=== PATIENT | female | born 1950 | race American Indian/Alaskan Native ===

== ENCOUNTER 2021-09-05 18:38 | Emergency (ER) | payer SELFPAY ==
[2021-09-05] MEDS ORDERED: QUEtiapine 25 MG TAB PO ONE (21:23)
--- NOTE | 2021-09-05 21:23 | Emergency Department Report ---
ED Psych HPI - General Stated Complaint: SI Time Seen by Provider: 09/05/21 21:15 Source: patient Mode of arrival: Ambulatory Limitations: No Limitations - History of Present Illness Initial Comments: Chief complaint: "If I tell you what I have, you will keep me in this hospital forever." HPI: This is a 71-year-old female with history of hypertension, prediabetes, schizophrenia and bipolar disorder who presents with paranoia and delusional behavior. She informed me that the later at the assisted she informing that she had an unpleasant interaction with a female at her assisted. She denies suicidal homicidal ideation. She has been compliant with her psychiatric med ication. She arrived via EMS. Complaint: other (Paranoia delusional thought pattern) -: unknown Associated Psychiatric Symptoms: racing thoughts, delusions Quality: constant Improves With: none Worsens With: none Context: not taking psychiatric Associated Symptoms: denies other symptoms Treatments Prior to Arrival: other (EMS transportation) - Related Data Previous Rx's Medication Instructions Recorded Last Taken Type QUEtiapine [SEROquel] 25 mg PO BID 30 Days #60 09/06/21 Unknown Rx Quetiapine Fumarate [SEROquel] 50 mg PO QHS 30 Days #30 tab 09/06/21 Unknown Rx Allergies Allergy/AdvReac Type Severity Reaction Status Date / Time No Known Allergies Allergy Unverified 05/23/21 11:31 ED Review of Systems ROS: Stated complaint: SI Other details as noted in HPI Comment: All other systems reviewed and negative Constitutional: denies: fever, malaise Respiratory: denies: cough, shortness of breath Cardiovascular: chest pain Psychiatric: denies: anxiety, depression, auditory hallucinations, visual hallucinations ED Past Medical Hx - Past Medical History Previous Medical History?: Yes Hx Hypertension: Yes Hx Diabetes: Yes (Prediabetes) Hx Psychiatric Treatment: Yes (Bipolar, schizophrenia) - Social History Smoking Status: Current Every Day Smoker Substance Use Type: None - Medications Home Medications: Home Medications Medication Instructions Recorded Confirmed Last Taken Type QUEtiapine [SEROquel] 25 mg PO BID 30 Days #60 09/06/21 Unknown Rx Quetiapine Fumarate [SEROquel] 50 mg PO QHS 30 Days #30 tab 09/06/21 Unknown Rx ED Physical Exam - General Limitations: No Limitations General appearance: alert, in no apparent distress - Head Head exam: Present: atraumatic, normocephalic - Eye Eye exam: Present: normal appearance - ENT ENT exam: Present: mucous membranes moist - Neck Neck exam: Present: normal inspection, full ROM - Respiratory Respiratory exam: Present: normal lung sounds bilaterally. Absent: respiratory distress, wheezes, rales, rhonchi - Cardiovascular Cardiovascular Exam: Present: regular rate, normal rhythm, normal heart sounds. Absent: systolic murmur, diastolic murmur, rubs, gallop - GI/Abdominal GI/Abdominal exam: Present: soft, normal bowel sounds. Absent: distended, tenderness, guarding, rebound, rigid - Extremities Exam Extremities exam: Present: normal inspection - Back Exam Back exam: Present: normal inspection - Neurological Exam Neurological exam: Present: alert, oriented X3 - Psychiatric Psychiatric exam: Present: agitated (Slightly agitated), flat affect, other (Disorganized thought pattern circular speech flight of ideas) - Skin Skin exam: Present: warm, dry, intact, normal color. Absent: rash ED Course Vital Signs 09/06/21 09/06/21 09/07/21 11:20 20:37 10:25 Temperature 98.5 F 97.7 F 98.2 F Pulse Rate 67 77 74 Respiratory 18 18 Rate Blood Pressure 133/81 143/84 122/76 [Right] O2 Sat by Pulse 96 96 Oximetry ED Medical Decision Making - Lab Data Result diagrams: 09/05/21 21:22 09/05/21 21:22 Laboratory Results - last 24 hr 09/05/21 09/05/21 09/05/21 21:22 21:22 21:22 WBC 10.8 RBC 5.57 H Hgb 15.1 H Hct 46.1 H MCV 83 MCH 27 L MCHC 33 RDW 15.3 H Plt Count 319 Lymph % (Auto) 27.5 [place] % (Auto) 9.5 H Eos % (Auto) 1.3 Baso % (Auto) 0.8 Lymph # (Auto) 3.0 [place] # (Auto) 1.0 H Eos # (Auto) 0.1 Baso # (Auto) 0.1 Seg Neutrophils % 60.9 Seg Neutrophils # 6.6 Sodium 140 Potassium 4.2 Chloride 104.4 Carbon Dioxide 21 L Anion Gap 19 BUN 17 Creatinine 0.8 Estimated GFR > 60 BUN/Creatinine Ratio 21 Glucose 115 H Calcium 10.1 Urine Color Urine Turbidity Urine pH Ur Specific [place] Urine Protein Urine Glucose (UA) Urine Ketones Urine Blood Urine Nitrite Urine Bilirubin Urine Urobilinogen Ur Leukocyte Esterase Urine WBC (Auto) Urine RBC (Auto) U Epithel Cells (Auto) Urine Bacteria (Auto) Urine WBC Clumps Hyaline Casts Urine Mucus Urine Yeast (Budding) Salicylates < 0.3 L Urine Opiates Screen Urine Methadone Screen Acetaminophen Ur Barbiturates Screen Ur Phencyclidine Scrn Ur Amphetamines Screen U Benzodiazepines Scrn Urine Cocaine Screen U Marijuana (THC) Screen Drugs of Abuse Note Plasma/Serum Alcohol 09/05/21 09/05/21 09/05/21 21:22 21:22 Unknown WBC RBC Hgb Hct MCV MCH MCHC RDW Plt Count Lymph % (Auto) [place] % (Auto) Eos % (Auto) Baso % (Auto) Lymph # (Auto) [place] # (Auto) Eos # (Auto) Baso # (Auto) Seg Neutrophils % Seg Neutrophils # Sodium Potassium Chloride Carbon Dioxide Anion Gap BUN Creatinine Estimated GFR BUN/Creatinine Ratio Glucose Calcium Urine Color Yellow Urine Turbidity Cloudy Urine pH 5.0 Ur Specific [place] 1.019 Urine Protein 100 mg/dl Urine Glucose (UA) Neg Urine Ketones Neg Urine Blood Neg Urine Nitrite Neg Urine Bilirubin Neg Urine Urobilinogen < 2.0 Ur Leukocyte Esterase Mod Urine WBC (Auto) 55.0 H Urine RBC (Auto) 17.0 U Epithel Cells (Auto) 47.0 H Urine Bacteria (Auto) 2+ Urine WBC Clumps 2+ Hyaline Casts 2 Urine Mucus Few Urine Yeast (Budding) 1+ Salicylates Urine Opiates Screen Urine Methadone Screen Acetaminophen 5.0 L Ur Barbiturates Screen Ur Phencyclidine Scrn Ur Amphetamines Screen U Benzodiazepines Scrn Urine Cocaine Screen U Marijuana (THC) Screen Drugs of Abuse Note Plasma/Serum Alcohol < 0.01 09/05/21 Unknown WBC RBC Hgb Hct MCV MCH MCHC RDW Plt Count Lymph % (Auto) [place] % (Auto) Eos % (Auto) Baso % (Auto) Lymph # (Auto) [place] # (Auto) Eos # (Auto) Baso # (Auto) Seg Neutrophils % Seg Neutrophils # Sodium Potassium Chloride Carbon Dioxide Anion Gap BUN Creatinine Estimated GFR BUN/Creatinine Ratio Glucose Calcium Urine Color Urine Turbidity Urine pH Ur Specific [place] Urine Protein Urine Glucose (UA) Urine Ketones Urine Blood Urine Nitrite Urine Bilirubin Urine Urobilinogen Ur Leukocyte Esterase Urine WBC (Auto) Urine RBC (Auto) U Epithel Cells (Auto) Urine Bacteria (Auto) Urine WBC Clumps Hyaline Casts Urine Mucus Urine Yeast (Budding) Salicylates Urine Opiates Screen Presumptive negative Urine Methadone Screen Presumptive negative Acetaminophen Ur Barbiturates Screen Presumptive negative Ur Phencyclidine Scrn Presumptive negative Ur Amphetamines Screen Presumptive negative U Benzodiazepines Scrn Presumptive negative Urine Cocaine Screen Presumptive negative U Marijuana (THC) Screen Presumptive negative Drugs of Abuse Note Disclamer Plasma/Serum Alcohol - Medical Decision Making 1. This is a 71-year-old female with history of schizophrenia and bipolar disorder who presents with paranoia and delusional thought pattern. Slightly agitated upon arrival. She is medically clear for psychiatric care. Awaiting treatment recommendations by psychiatry team. CBC chemistry within normal limits. Salicylates acetaminophen alcohol undetected on serum studies. Patient is medically clear for psychiatric care. Awaiting treatment recommendations by mental health team. 2. Suspect candidal vaginitis causing contaminated abnormal urinalysis with contamination, will cover for both candidal vaginitis with fluconazole and Keflex for UTI. Critical care attestation.: If time is entered above; I have spent that time in minutes in the direct care of this critically ill patient, excluding procedure time. ED Disposition Clinical Impression: Schizophrenia, Candidal vaginitis, UTI (urinary tract infection) Disposition: 01 HOME / SELF CARE / HOMELESS Is pt being admited?: No Does the pt Need Aspirin: No Condition: Stable Additional Instructions: Professional and Agency Contacts To help [facility](18/03) [place] Crisis Line: Suicide Prevention Line: Crisis Text Line: Text START to [phone] Emergency: 911 Outpatient COMMUNITY Behavioral Health Resources: [place]: [facility] [address] [place], [place] [address] [place]: [facility] - [address] [address] [place]: [facility] - [address] [place] [address] Saturday thru Saturday - 8am - 5pm [place]: [facility] Address: [address], [place] [address] [place]: [facility] Address: [address], [place] [address] Saturday thru Saturday- 7am-2pm [facility] Address: [address], [place] [address] Saturday thru Saturday: 8:30AM-5PM OUTPATIENT MENTAL HEALTH RESOURCES [facility], [address] [place] [address] [facility] Anabella Baird MD: [address] [facility] [address] [place], [place] [id number] [facility]: [address] [place] [address] [facility] [address] [phone] [facility]: [address] [facility] [address] [place] [address] [phone] [facility]: [address] [facility] [address] [facility] [address] [facility]: [address] [place] [address] Forrest Johnson MD: [address] [facility] [id number] [facility]: [address] [place], [place] [id number] [phone] [place] CRISIS AND ACCESS LINE: * Prescriptions: Quetiapine Fumarate [SEROquel] 50 mg PO QHS 30 Days #30 tab QUEtiapine [SEROquel] 25 mg PO BID 30 Days #60 Referrals: PRIMARY CARE, [Primary Care Provider] - 3-5 Days
[2021-09-05 21:45] LABS: Basophils # (Auto) 0.1 K/mm3 (0.0-0.1); Basophils % (Auto) 0.8 % (0.0-1.8); Eosinophils # (Auto) 0.1 K/mm3 (0.0-0.4); Eosinophils % (Auto) 1.3 % (0.0-4.3); Hematocrit 46.1 % (30.3-42.9); Hemoglobin 15.1 gm/dl (10.1-14.3); Lymphocytes % (Auto) 27.5 % (13.4-35.0); Mean Corpuscular HGB Conc 33 % (30-34); Mean Corpuscular Volume 83 fl (79-97); Monocytes % (Auto) 9.5 % (0.0-7.3); Platelet Count 319 K/mm3 (140-440); Red Blood Count 5.57 M/mm3 (3.65-5.03); Red Cell Distribution Width 15.3 % (13.2-15.2)
[2021-09-05 21:49] LABS: BUN/Creatinine Ratio 21; Blood Urea Nitrogen 17 mg/dL (7-17); Calcium 10.1 mg/dL (8.4-10.2); Hemolysis Index 11
[2021-09-06 00:25] LABS: Bacteria,Urine 2+ /HPF (Negative); Bilirubin,Urine NEG (Negative); Blood,Urine NEG (Negative); Color,Urine Yellow (Yellow); Hyaline Casts,Urine 2 /LPF; Mucus,Urine FEW /HPF; Urobilinogen,Urine < 2.0 mg/dL (<2.0)
[2021-09-06 00:32] LABS: Amphetamine Screen,Urine PRESUMPTIVE NEGATIVE; Benzodiazepines Screen,Urine PRESUMPTIVE NEGATIVE; Cannabinoid Screen,Urine PRESUMPTIVE NEGATIVE; Cocaine Screen,Urine PRESUMPTIVE NEGATIVE; Methadone Screen,Urine PRESUMPTIVE NEGATIVE; Opiate Screen,Urine PRESUMPTIVE NEGATIVE
[2021-09-06] MEDS ORDERED: FLUCONAZOLE 200 MG TAB PO ONE (10:00)
--- NOTE | 2021-09-06 11:31 | Event Note ---
Date: 09/06/21 S: No events reported overnight O: Vital Signs - 8 hr 09/06/21 11:20 Temperature 98.5 F Pulse Rate 67 Respiratory 18 Rate Blood Pressure 133/81 [Right] O2 Sat by Pulse 96 Oximetry A: Schizophrenia P: 213/awaiting inpatient psych.
--- NOTE | 2021-09-06 11:34 | Consultation ---
History of Present Illness - Reason for Consult Consult date: 09/06/21 Reason for consult: mental health evaluation - History of Present Psychiatric Illness ED Note: This is a 71-year-old female with history of hypertension, prediabetes, schizophrenia and bipolar disorder who presents with paranoia and delusional behavior. She informed me that the later at the [facility] she informing that she had an unpleasant interaction with a female at her [facility]. She denies suicidal homicidal ideation. She has been compliant with her psychiatric medication. She arrived via EMS. Tosin Soler is a 71 year old female with history of Bipolar, Schizophrenia, and Anxiety disorder. In my interview with the the patient, she is restless and nervous. she states " they brought me here because they think I'm messed up in the head, No body will give me my medicine." The patient reports difficulty with sleep. She denies any current suicidal/homicidal ideation and denies hallucinations. PAST PSYCHIATRIC HISTORY: Diagnoses: Bipolar, Schizophrenia, and Anxiety Suicide attempts or Self-harm behavior: Yes Prior psychiatric hospitalizations: Yes Substance Abuse history: denies Previous psychiatric medications tried:unable to recall Outpatient treatment:unknown PAST MEDICAL HISTORY: Family Psychiatric History: None reported or documented SOCIAL HISTORY Marital Status: Living Arrangements: Lives in a fpc Employment Status:[employer] Access to guns/weapons: Denies Education:9th grade History of Abuse:Denies Legal History:Unknown REVIEW OF SYSTEMS Constitutional: Negative for weight loss ENT: Negative for stridor Respiratory: Negative for cough or hemoptysis All other systems reviewed and are negative MENTAL STATUS EXAMINATION General Appearance and Behavior: Age appropriate, good hygiene, wearing appropriate clothes, uncooperative polite with questioning. Cooperation: cooperative Psychomotor Behavior: Psychomotor agitation Mood:"anxious" Affect and affective range:congruent Thought Process:Goal directed Thought Content:reality oriented Speech:Normal Intellectual Functioning: Average Suicidal Ideation:Denies Homicidal Ideation: Denies Hallucination: Denies Impulse Control:Questionable Insight and Judgment:limited insight and good judgment Memory: Intact Attention:Distractible Orientation: Alert and oriented Diagnoses: Hx of Bipolar disorder (1) DC 1013 Treatment Plan: Continue home meds. Start Seroquel 50mg po QHS Start Seroquel 25mg po BID Patient should be compliant with medications and not to use drugs and not to drink alcohol. PSYCHOTHERAPY: Supportive psychotherapy provided MEDICAL: Per primary team DELIRIUM PRECAUTIONS: Please re-orient patient frequently, keep lights on during the day, and minimize benzodiazepines and opiates as these medications could worsen patient's confusion. DEATH CLAIM CLERK: Per medical team DISPOSITION: Do not recommend acute inpatient psychiatric hospitalization at this time. Automated Access Systems Technician will provide patient with psychiatric out-patient resources and patient to follow up with her PCP. FOLLOW-UP: Will sign off. Thank you for the consult. Please contact with any questions and/or concerns. Medications and Allergies Allergies Allergy/AdvReac Type Severity Reaction Status Date / Time No Known Allergies Allergy Unverified 05/23/21 11:31 Home Medications Medication Instructions Recorded Confirmed Last Taken Type QUEtiapine [SEROquel] 25 mg PO BID 30 Days #60 09/06/21 Unknown Rx Quetiapine Fumarate [SEROquel] 50 mg PO QHS 30 Days #30 tab 09/06/21 Unknown Rx Active Meds: Active Medications Cephalexin (Cephalexin 500 Mg Cap) 500 mg PO TID [facility]; Protocol Stop: 09/10/21 14:01 Mental Status Exam - Vital signs Last Vital Signs Temp 98.5 F 09/06/21 11:20 Pulse 67 09/06/21 11:20 Resp 18 09/06/21 11:20 BP 133/81 09/06/21 11:20 Pulse Ox 96 09/06/21 11:20 Results Result Diagrams: 09/05/21 21:22 09/05/21 21:22 Abnormal lab results 09/05/21 09/05/21 09/05/21 Range/Units 21:22 21:22 21:22 RBC 5.57 H (3.65-5.03) M/mm3 Hgb 15.1 H (10.1-14.3) gm/dl Hct 46.1 H (30.3-42.9) % MCH 27 L (28-32) pg RDW 15.3 H (13.2-15.2) % [place] % (Auto) 9.5 H (0.0-7.3) % [place] # (Auto) 1.0 H (0.0-0.8) K/mm3 Carbon Dioxide 21 L (22-30) mmol/L Glucose 115 H (65-100) mg/dL Urine WBC (Auto) (0.0-6.0) /HPF U Epithel Cells (Auto) (0-13.0) /HPF Salicylates < 0.3 L (2.8-20.0) mg/dL Acetaminophen (10.0-30.0) ug/mL 09/05/21 09/05/21 Range/Units 21:22 Unknown RBC (3.65-5.03) M/mm3 Hgb (10.1-14.3) gm/dl Hct (30.3-42.9) % MCH (28-32) pg RDW (13.2-15.2) % [place] % (Auto) (0.0-7.3) % [place] # (Auto) (0.0-0.8) K/mm3 Carbon Dioxide (22-30) mmol/L Glucose (65-100) mg/dL Urine WBC (Auto) 55.0 H (0.0-6.0) /HPF U Epithel Cells (Auto) 47.0 H (0-13.0) /HPF Salicylates (2.8-20.0) mg/dL Acetaminophen 5.0 L (10.0-30.0) ug/mL All other labs normal.
[2021-09-07] MEDS: cephALEXin 500 MG CAP PO SCH ×4 (00:39→11:31)
[2021-09-07 10:25] VITALS: BP 122/76
== END 2021-09-07 11:54 | disposition home or self-care (01) ==
LOC: EEVIPCON 18:38 → ED 18:38
DX: F20.9 Schizophrenia, unspecified (principal); B37.3 Candidiasis of vulva and vagina; N39.0 Urinary tract infection, site not specified; E11.9 Type 2 diabetes mellitus without complications; I10 Essential (primary) hypertension; F31.9 Bipolar disorder, unspecified; F17.200 Nicotine dependence, unspecified, uncomplicated; Z79.899 Other long term (current) drug therapy; Z20.822 Contact with and (suspected) exposure to COVID-19
CPT/HCPCS: 36415; 80048; 80307; 81001; 85025; 87086; 99285; U0003; 80320; 99283; G0480